=== PATIENT | male | born 1955 | race Caucasian/White ===

== ENCOUNTER 2024-06-17 10:26 | Emergency (ER) | payer MEDICARE, MEDICAID ==
[~2024-06-17] VITALS: Ht 154.9 cm; Wt 76.0 kg
[~2024-06-17 10:26] MED LIST: FURO-151 MT; SPIR25TA6 MT
[2024-06-17 10:34] VITALS: BP 118/79; TEMP 36.6; O2SAT 98
[2024-06-17 10:42] VITALS: PULSE 111; RESP 16; O2SAT 99
[2024-06-17] MEDS ORDERED: ACET-2708 MT (11:02)
[2024-06-17] MEDS ORDERED: CAPS42.514 TP (11:02)
[2024-06-17] MEDS ORDERED: LIDO700A15 TP (11:02)
== END 2024-06-17 11:29 | disposition home or self-care (01) ==
LOC: ER 10:26
DX: M25.512 Pain in left shoulder (principal); E11.9 Type 2 diabetes mellitus without complications; Z79.899 Other long term (current) drug therapy
CPT/HCPCS: 99283